=== PATIENT | female | born 2000 | race Caucasian/White ===

== ENCOUNTER 2023-04-29 09:49 | Inpatient (IN) | payer OTHER ==
[~2023-04-29] VITALS: Ht 152.4 cm; Wt 78.0 kg
[2023-04-29] MEDS ORDERED: RINGERS SOLUTION,LACTATED 1,000 ML IV SCH ×2 (10:00→22:45)
[2023-04-29 10:16] LABS: HEMATOCRIT 40.3 % (36.0-45.00); HEMOGLOBIN 13.8 g/dL (12.0-15.00); MEAN CELL VOLUME 91.9 fL (80.00-100.00); MEAN CORPUSCULAR HEMOGLOBIN 31.5 pg (27.00-32.0); MEAN CORPUSCULAR HGB CONC 34.2 g/dl (32.0-36.0); PLATELET COUNT 262 K/uL (150-450); RED BLOOD COUNT 4.38 M/uL (4.00-6.00); RED CELL DISTRIBUTION WIDTH 13.3 % (11.5-14.5)
[2023-04-29 10:20] LABS: PH,URINE 6.5 (5.0-8.0); URINE APPEARANCE Clear; URINE BILIRRUBIN Negative (NEGATIVE); URINE BLOOD Negative; URINE COLOR Yellow; URINE GLUCOSE Negative (NEGATIVE); URINE LEUKOCYTE Trace; URINE NITRATE Negative; URINE PROTEIN Negative (NEGATIVE)
[2023-04-29 10:22] LABS: URINE BACTERIA 201.5 uL (0.0-1933); URINE EPITHELIAL CELLS 24.7 uL (0.0-38.8); URINE RBC 2.4 uL (0.0-20.8); URINE WBC 28.5 uL (0.0-23.2)
[2023-04-29] MEDS ORDERED: OXYTOCIN 500 ML IV SCH (13:15)
[2023-04-29] MEDS ORDERED: AMPICILLIN SODIUM 2,000 MG in 0.9 % SODIUM CHLORIDE 100 ML IV SCH (13:15)
[2023-04-29] MEDS ORDERED: OXYTOCIN 10 UNITS/ML VIAL ONE ×2 (13:16→21:19)
[2023-04-29] MEDS ORDERED: AMPICILLIN SODIUM 2,000 MG VIAL ONE (13:16)
[2023-04-29] MEDS ORDERED: ERYTHROMYCIN BASE 3.5 GM OINT...G. OP ONE (21:19)
[2023-04-29] MEDS ORDERED: KETOROLAC TROMETHAMINE 60 MG VIAL IM STA (22:37)
[2023-04-29] MEDS ORDERED: MEPERIDINE HCL/PF 50 MG/ML VIAL IM PRN (22:45)
[2023-04-29] MEDS ORDERED: PROMETHAZINE HCL 25 MG/ML AMPUL IM PRN (22:45)
[2023-04-29] MEDS ORDERED: ERYTHROMYCIN BASE 1 GM TUBE OP SCH (22:45)
[2023-04-29] MEDS ORDERED: CHLORHEXIDINE GLUCONATE 120 ML BOTTLE TOP SCH (22:45)
[2023-04-29] MEDS ORDERED: OXYTOCIN 1,000 ML IV SCH (22:45)
[2023-04-30] MEDS ORDERED: AMPICILLIN SODIUM 1,000 MG VIAL ONE (00:57)
[2023-04-30] MEDS ORDERED: OXYTOCIN 10 UNITS/ML VIAL ONE (03:58)
[2023-04-30 06:06] LABS: HEMATOCRIT 35.1 % (36.0-45.00); HEMOGLOBIN 12.3 g/dL (12.0-15.00); MEAN CELL VOLUME 92.6 fL (80.00-100.00); MEAN CORPUSCULAR HEMOGLOBIN 32.4 pg (27.00-32.0); MEAN CORPUSCULAR HGB CONC 34.9 g/dl (32.0-36.0); PLATELET COUNT 234 K/uL (150-450); RED BLOOD COUNT 3.79 M/uL (4.00-6.00); RED CELL DISTRIBUTION WIDTH 13.2 % (11.5-14.5)
[2023-04-30] MEDS ORDERED: OxyCODONE HCL/APAP UD (PERCOCET) PO PRN (09:00)
[2023-04-30] MEDS ORDERED: ERYTHROMYCIN BASE 1 GM TUBE OP ONE (23:30)
[2023-04-30] MEDS ORDERED: OXYTOCIN 10 UNITS/ML VIAL IV ONE (23:30)
== END 2023-05-02 11:35 | disposition home or self-care (01) | DRG 787 ==
LOC: OBS/DEL 09:49 → OB/GYN 13:07 → LDR 13:07 → O/R 21:34 → OB/GYN 04-30 00:16
PROVIDERS: ADMIT Obstetrics & Gynecology; ATTEND Obstetrics & Gynecology
PROC: 4A1HXCZ Monitoring of Products of Conception, Cardiac Rate, External Approach (ICD-10-PCS; 2023-04-29)
PROC: BY4FZZZ Ultrasonography of Third Trimester, Single Fetus (ICD-10-PCS; 2023-04-29)
PROC: 10D00Z1 Extraction of Products of Conception, Low, Open Approach (ICD-10-PCS; principal; 2023-04-30)
DX: O62.0 Primary inadequate contractions (principal); O41.03X0 Oligohydramnios, third trimester, not applicable or unspecified; O26.843 Uterine size-date discrepancy, third trimester; O36.8130 Decreased fetal movements, third trimester, not applicable or unspecified; Z3A.39 39 weeks gestation of pregnancy; Z37.0 Single live birth; Z20.822 Contact with and (suspected) exposure to COVID-19